=== PATIENT | male | born 1955 | race Two or more races ===

== ENCOUNTER → 2025-04-18 | Outpatient (CLI) | payer OTHER, SELFPAY ==
--- NOTE | 2025-04-18 12:48 | XR_ITS ---
Examination: Duplex scan of the lower extremity, unilateral left complete Date and time of exam: April 18, 2025, 1257 hours INDICATIONS: Left foot redness swelling and pain beginning 3 months ago Technique: Duplex scan of the extremity veins using B-mode/grayscale imaging and Doppler spectral analysis and color flow Attention is directed to internal echogenicity, compression and augmentation involving these veins, color flow assessment, spectral analysis Findings: Major deep venous structures in the extremity demonstrate normal course and caliber. There is no evidence of deep vein thrombosis. Normal color flow and spectral analysis Impression: Negative for DVT..
== END | disposition home or self-care (01) ==
PROVIDERS: PCP Family Medicine; Referring Provider Family Medicine; Visit Provider Family Medicine
DX: R60.9 Edema, unspecified (principal)
CPT/HCPCS: 93971